=== PATIENT | male | born 1995 | race Hispanic/Latino ===

== ENCOUNTER 2018-06-16 12:22 | Emergency (ER) | payer SELFPAY ==
[2018-06-16] MEDS ORDERED: Ketorolac Tromethamine 30 MG/ML VIAL ONE (14:05)
--- NOTE | 2018-06-16 15:19 | RAD ---
PA AND LATERAL CHEST XRAY: DATE: 06/16/2018. HISTORY: Low back pain. FINDINGS: Cardiac silhouette is at the upper limits of normal in size. Pulmonary vasculature is within normal limits. The lungs are clear. Osseous structures are intact. There is a suggestion of a calcified h ilar lymph node on the lateral projection. Osseous structures are intact. IMPRESSION: No acute cardiopulmonary process. POS: [facility]
== END 2018-06-16 14:40 | disposition home or self-care (01) ==
LOC: EDBD 12:22 → ERS 12:22
DX: S23.3XXA Sprain of ligaments of thoracic spine, initial encounter (principal); X58.XXXA Exposure to other specified factors, initial encounter
CPT/HCPCS: 71046; 96372; J1885